=== PATIENT | female | born 1995 | race Caucasian/White ===

== ENCOUNTER 2016-07-27 16:48 | Emergency (ER) | payer OTHER ==
[~2016-07-27] VITALS: Ht 167.6 cm; Wt 56.7 kg
[2016-07-27 16:54] VITALS: BP 137/90
[2016-07-27] MEDS ORDERED: SILVER SULFADIAZINE CREAM 25 GM TUBE TP ONE (17:00)
[2016-07-27] MEDS ORDERED: SILVER SULFADIAZINE CREAM 25 GM TUBE ONE (17:00)
[2016-07-27] MEDS ORDERED: HYDROCODONE/APAP 5/325MG 1 EACH TABLET ONE (17:13)
--- NOTE | 2016-07-27 17:21 | NUR ---
PT STATES IN A LOT OF PAIN. DR DIALLO MADE AWARE. NORCO [address] DIALLO VERBAL ORDER. CARRIED OUT.
--- NOTE | 2016-07-27 17:46 | NUR ---
WOUND CARE PROOVIDED. SIVADENE CREAM APPLIED. PT D/C IN STABLE CONDITION.
== END 2016-07-27 17:47 | disposition home or self-care (01) ==
LOC: ER 16:49
DX: T23.201A Burn of second degree of right hand, unspecified site, initial encounter (principal); Y27.2XXA Contact with hot fluids, undetermined intent, initial encounter; Y93.89 Activity, other specified; Y99.8 Other external cause status
CPT/HCPCS: 16020; 99284; A4606; A6402; Z7610